=== PATIENT | male | born 1950 | race Caucasian/White ===

== ENCOUNTER → 2020-05-30 | Outpatient (CLI) | payer MEDICARE ==
--- NOTE | 2020-05-30 13:04 | Diagnostic Imaging Report ---
PROCEDURE: US Renal Bilateral. INDICATION: Chronic renal disease TECHNIQUE: Multiple real-time grayscale sonographic images were obtained of the kidneys. CORRELATION: None FINDINGS: RIGHT KIDNEY: 12.3 x 4.4 x 6.6 cm. There is normal echotexture of the right renal parenchyma. No definitive calcification or hydronephrosis. LEFT KIDNEY: 12.9 x 5.1 x 8.3 cm. There is normal echotexture of the left renal parenchyma. No definitive calcification or hydronephrosis. URINARY BLADDER: The partially distended bladder has an unremarkable appearance. Bilateral ureteral jets are present. IMPRESSION: 1. Unremarkable renal sonogram. Dictated by: Dictated on workstation # [id number]
== END ==
LOC: RAD 11:00
PROVIDERS: ATTEND Internal Medicine
DX: N18.9 Chronic kidney disease, unspecified (principal)
CPT/HCPCS: 76770

== ENCOUNTER → 2021-12-31 | Outpatient (CLI) | payer MEDICARE ==
[~2021-12-31] VITALS: Ht 175.3 cm; Wt 102.0 kg
[~2021-12-31] MED LIST: ASPI-808 PO; CEPH500T PO; INSU100V42 SQ; LOSA50TA63 PO; LOVA40TA2 PO; OXYC1TAB11 PO; QUET100T PO; TMSL.4C PO
== END | disposition home or self-care (01) ==
LOC: PREOP 05:30
PROVIDERS: ATTEND Urology
DX: Z01.818 Encounter for other preprocedural examination (principal)

== ENCOUNTER 2022-01-06 07:58 | Day surgery (SDC) | payer MEDICARE ==
[2022-01-06] VITALS (11 sets, daily range): BP systolic 142–175; BP diastolic 57–90
[~2022-01-06] VITALS: Ht 175 cm; Wt 102.0 kg
--- NOTE | 2022-01-06 07:17 | Progress Note-Pre Operative ---
Pre-Operative Progress Note H&P Reviewed The H&P was reviewed, patient examined and no changes noted. Date Seen by Provider: January 06, 2022 Time Seen by Provider: 09:57 Date H&P Reviewed: January 06, 2022 Time H&P Reviewed: 09:57 Pre-Operative Diagnosis: PHIMOSIS WITH GLANS LESIONS LUCY GORMAN MD January 06, 2022 07:17
[~2022-01-06 07:58] MED LIST changes: -ASPI-808 PO; -CEPH500T PO; -OXYC1TAB11 PO
[2022-01-06] MEDS: LACTATED RINGERS 1,000 ML IV PRN ×2 (09:00→11:27)
[2022-01-06] MEDS ORDERED: NEOSPORIN + PAIN RELIEF CREAM 15 GM ONE (09:07)
--- NOTE | 2022-01-06 09:58 | Progress Note-Post Operative ---
Post-Operative Progess Note Surgeon (s)/Clean Up Person (s) Surgeon LUCY GORMAN MD Clean Up Person: NONE Pre-Operative Diagnosis PHIMOSIS WITH GLANS LESIONS Post-Operative Diagnosis SAME Procedure & Operative Findings Date of Procedure 01/06/22 Procedure Performed/Findings CIRCUMCISION AND BIOPSY GLANS LESIONS Anesthesia Type GENERAL Estimated Blood Loss Estimated blood loss (mL): LESS THAN 50cc Specimens/Packing Specimens Removed FORESKIN AND GLANS LESIONS Packing: NONE LUCY GORMAN MD January 06, 2022 09:58
[2022-01-06] MEDS ORDERED: ONDANSETRON 4 MG/2 ML (SDV) Z0FRAN ONE (10:02)
[2022-01-06] MEDS ORDERED: LIDOCAINE PF 2% 5 ML (XYLOCAINE) VIAL ONE (10:02)
[2022-01-06] MEDS ORDERED: fentaNYL INJ 100 MCG/2 ML AMP ONE (10:02)
[2022-01-06] MEDS ORDERED: proPOfol 200 MG/20 ML (DIPRIVAN) VIAL IV ONE (10:02)
[2022-01-06] MEDS ORDERED: ASPI-808 PO (10:51)
[2022-01-06] MEDS ORDERED: SEVOFLURANE (ULTANE) 15 ML INHAL SOLN ONE (11:04)
[2022-01-06] MEDS ORDERED: ONDANSETRON 4 MG/2 ML (SDV) Z0FRAN IVP PRN (11:15)
[2022-01-06] MEDS ORDERED: HYDROmorphone 2 MG/ML VIAL (DILAUDID) IV ONE (11:15)
[2022-01-06] MEDS ORDERED: morphine INJ 10 MG/ML 1ML (SYR OR VIAL) IVP ONE (11:15)
--- NOTE | 2022-01-06 11:16 | Discharge Inst-Urology ---
Discharge Inst-Urology Reconcile Patient Problems Problems Reviewed?: Yes Final Diagnosis PHIMOSIS AND GLANS LESIONS Patient Instructions/Follow Up Plan/Assessment/Instructions Please make appointment to been seen in office in 2 weeks. REST till then and off ASA Ice to penis in RR and at home for 6 hours and then PRN Neosporin+pain ointment tid to circ area and glans for 5-7 days Tomorrow start showers, no bath Keep bowels soft and moving Increase oral fluids for 48 hours and then as needed. Diet and Activity as tolerated. If questions or concerns contact your physician Or seek help at emergency department. LUCY GORMAN MD January 06, 2022 11:16
[2022-01-06] MEDS ORDERED: OXYC1TAB11 PO (11:30)
[2022-01-06] MEDS ORDERED: CEPH500T PO (11:30)
--- NOTE | 2022-01-06 11:59 | Anesthesia-General Post-Op ---
General Patient Condition Mental Status/LOC: Same as Preop Cardiovascular: Satisfactory Nausea/Vomiting: Absent Respiratory: Satisfactory Pain: Controlled Complications: Absent Post Op Complications Complications None Follow Up Care/Instructions Patient Instructions None needed. Anesthesia/Patient Condition Patient Condition Patient is doing well in PACU, no complaints, stable vital signs, no apparent adverse anesthesia problems. OFE HUGHES DO January 06, 2022 11:59
--- NOTE | 2022-01-06 14:52 | OPERATIVE REPORT ---
DATE OF SERVICE: 01/06/2022 PREOPERATIVE DIAGNOSES: 1. Phimosis. 2. Glans lesions. POSTOPERATIVE DIAGNOSES: 1. Phimosis. 2. Glans lesions. OPERATION PERFORMED: Circumcision and excisional biopsy of glans lesion as well as a penile mucosa. SURGEON: Dawood Gorman MD. ANESTHESIA: General. COMPLICATIONS: None. DESCRIPTION OF PROCEDURE: Under satisfactory general anesthesia, the patient in supine position, abdomen, genitalia and thigh were prepped and draped in the usual sterile fashion. A circular incision was made in the foreskin at the level of the ahuja glandis and then a dorsal slit was performed to be able to retract the foreskin. A circular incision was made in the mucosa proximal to the ahuja glandis. The excess foreskin was sharply excised. Bleeders were cauterized as the resection was proceeding. Hemostasis was complete. I went ahead and obtained excisional biopsies of the mucosa of the penis ventrally to make sure about cancer and also took two biopsies from the lesions and the glans penis, cauterized the base with complete hemostasis. I went ahead and closed, approximated the skin and the mucosa with interrupted 4-0 chromic catgut in the four-quadrant and in between. Neosporin plus pain ointment was applied. Needle, sponge, and instruments were correct x2. Estimated blood loss, less than 50 mL, none of which was replaced. The patient tolerated the procedure and anesthesia well and was sent to recovery room in stable condition. Job ID: [id number] DocumentID: [id number] Dictated Date: 01/06/2022 11:20:32 Sash Sticker Date: 01/06/2022 14:51:37 Dictated By: DAWOOD GORMAN MD
== END 2022-01-06 13:05 | disposition home or self-care (01) ==
LOC: SDC 07:58
PROVIDERS: ATTEND Urology
DX: C60.1 Malignant neoplasm of glans penis (principal); N47.1 Phimosis
CPT/HCPCS: 87081

== ENCOUNTER 2023-01-06 05:41 | Outpatient (CLI) | payer MEDICARE ==
[~2023-01-06] VITALS: Ht 175.3 cm; Wt 103.0 kg
[~2023-01-06 05:41] MED LIST changes: +ASPI-808 PO; +CEPH500T PO; +OXYC1TAB11 PO
[2023-01-06] MEDS ORDERED: INSU100V37 SQ (13:32)
[2023-01-06] MEDS ORDERED: OMEP20TA33 PO (13:32)
[2023-01-06] MEDS ORDERED: INSU100V16 SQ (13:32)
== END 2023-01-06 13:47 | disposition home or self-care (01) ==
LOC: PREOP 05:41
PROVIDERS: ATTEND Surgery
DX: Z01.818 Encounter for other preprocedural examination (principal)

== ENCOUNTER 2023-01-07 09:52 | Day surgery (SDC) | payer MEDICARE ==
[2023-01-07] VITALS (7 sets, daily range): BP systolic 124–173; BP diastolic 57–85
[~2023-01-07] VITALS: Ht 175.3 cm; Wt 103.0 kg
[~2023-01-07 09:52] MED LIST changes: +INSU100V16 SQ; +INSU100V37 SQ; +OMEP20TA33 PO
[2023-01-07] MEDS ORDERED: LACTATED RINGERS 1,000 ML IV PRN (10:00)
[2023-01-07] MEDS ORDERED: CLINDAMYCIN 600 MG/50 ML IVPB 50 ML IV ONE (10:00)
[2023-01-07] MEDS ORDERED: BUP/EPI 0.5% 1:200,000 (SENSORCAINE) 30 ML VIAL ONE (10:47)
[2023-01-07] MEDS ORDERED: 0.9% SODIUM CHLORIDE PF INJ 20 ML VIAL ONE (10:47)
[2023-01-07] MEDS ORDERED: HEParin (CENTRAL IV FLUSH) 500 UNIT/5 ML SYR ONE (10:47)
[2023-01-07] MEDS ORDERED: MIDAZOLAM 2 MG/2 ML (VERSED) VIAL ONE (11:10)
[2023-01-07] MEDS ORDERED: PROPOFOL INJECTION 50 ML IV ONE (11:10)
--- NOTE | 2023-01-07 11:10 | Progress Note-Pre Operative ---
Pre-Operative Progress Note Date H&P Reviewed: January 07, 2023 Time H&P Reviewed: 11:10 History & Physical: H&P Reviewed, Patient Examed, No changes noted Pre-Operative Diagnosis: lung cancer CARINA OLIVER DO January 07, 2023 11:10
[2023-01-07] MEDS ORDERED: BUP/EPI 0.5% 1:200,000 (SENSORCAINE) 30 ML VIAL INJ ONE (11:34)
[2023-01-07] MEDS ORDERED: HEParin (CENTRAL IV FLUSH) 500 UNIT/5 ML SYR IV ONE (11:35)
[2023-01-07] MEDS ORDERED: 0.9% SODIUM CHLORIDE PF INJ 20 ML VIAL IV ONE (11:36)
--- NOTE | 2023-01-07 11:50 | Discharge Inst-Simple/Standard ---
Discharge Inst-Standard Patient Instructions/Follow Up Plan of Care/Instructions/FU: 2 weeks charles Activity as Tolerated: No Discharge Diet: Regular Diet Other Inst to Patient Follow up Appt: Make appointment for 2 week. Instructions: No lifting greater than 10 pounds. No strenuous activity. May shower in 24 hours, no tub bath or soaking. Use incentive spirometer at home as directed. No Smoking Skin/Wound Care: You have special glue over your incision that will fall off on it's own. Ice pack on 15 min and off 30 min for first 48 hours. This reduces discomfort and swelling. Symptoms to Report: Appetite Changes, Extremity Discoloration, Numbness/Tingling, Swelling Increased, Bleeding Excessive, Eyesight Changes, Pain Increased, Urine Color Change, Constipation(Persistent), Fever over 101 degree F, Pain/Pressure in ches t, Urinating Difficulty, Cough Up/Vomit Blood, Heart Beat Irreg/Pounding, Pain/Pressure in jaw, Vaginal Bleeding Increase, Cramps in feet or legs, Lightheadedness, Pain/Pressure in shoulder, Diarrhea(Persistent), Memory Changes Suddenly, Questions/Concerns, Weight gain consecutive days, Dizziness/Fainting, Nausea/Vomiting, Shortness of Breath, Weight gain over 2 pounds If questions or concerns contact your physician Or seek help at emergency department. CARINA OLIVER DO January 07, 2023 11:50
--- NOTE | 2023-01-07 11:51 | Progress Note-Post Operative ---
Post-Operative Progess Note Surgeon (s)/Field Service Technician (s) Surgeon CARINA OLIVER DO Field Service Technician: na Pre-Operative Diagnosis lung cancer Post-Operative Diagnosis same Procedure & Operative Findings Date of Procedure 01/07/23 Procedure Performed/Findings PROCEDURE: Left internal jugular port placement using ultrasound guidance. COMPLICATIONS: None. INDICATIONS: The patient is a 72 year old male with lung cancer. Patient understands the risks and benefits of port placement and wished to proceed with the procedure. Consent was signed on the chart. PROCEDURE: The patient was taken to the operating suite, was prepped and draped in the sterile fashion. A surgical pause was performed. Ultrasound was used to locate the internal jugular vein. Once located anesthetic was infiltrated above it. Using micro-access kit, the right internal vein was accessed. Dark nonpulsatile blood was withdrawn. The wire was inserted. Fluoroscopy assured proper placement. The needle was removed. The micro-access dilator was advanced over the wire and the wire was removed. The regular wire was inserted and fluoroscopy assured proper placement. The wire was then secured. Local anesthetic was used to anesthetize from the neck for tunneling down to the right chest and for pocket creation. A 15 blade scalpel was used to make an incision over the left chest. Cautery was used to dissect down to the pectoral fascia. A pocket was created with blunt dissection. The dilator sheath was then advanced over the wire under fluoroscopy and the dilator and wire were removed. The Groshong catheter was inserted through the sheath and the sheath was then removed. The Groshong wire was removed. The catheter was then tunneled to the right chest pocket. Fluoroscopy was used to cut to length and this was then attached to the port which was then placed within the pocket. The port was then accessed without difficulty. It was then flushed with saline and then heparin. The subcutaneous tissues were then reapproximated using 3-0 Vicryl. The areas were then washed and dried. Skin Affix was placed over incision. The insertion point of the neck Skin Affix was placed over the incision. The patient tolerated the procedure well without complication and was taken to recovery room in stable condition. Chest x-ray is pending. Anesthesia Type mac c local Estimated Blood Loss Estimated blood loss (mL): minimal Specimens/Packing Specimens Removed CARINA Huntley DO January 07, 2023 11:51
[2023-01-07] MEDS ORDERED: morphine INJ 10 MG/ML 1ML (SYR OR VIAL) IVP ONE (12:00)
[2023-01-07] MEDS ORDERED: ONDANSETRON 4 MG/2 ML (SDV) Z0FRAN IVP PRN (12:00)
[2023-01-07] MEDS ORDERED: MEPERIDINE (DEMEROL) INJ 50 MG/ML IVP ONE (12:00)
--- NOTE | 2023-01-07 12:00 | Anesthesia-General Post-Op ---
MAC Patient Condition Mental Status/LOC: Same as Preop Cardiovascular: Satisfactory Nausea/Vomiting: Absent Respiratory: Satisfactory Pain: Controlled Complications: Absent Post Op Complications Complications None Follow Up Care/Instructions Patient Instructions None needed. Anesthesiology Discharge Order Discharge Order Patient is doing well, no complaints, stable vital signs, no apparent adverse anesthesia problems. No complications reported per nursing. PRINCESS SILVA CRNA January 07, 2023 12:00
--- NOTE | 2023-01-07 12:10 | Diagnostic Imaging Report ---
Indication: Port placement. Findings: A left IJ catheter with chest wall port has its tip at the mid SVC level, placed with no pneumothorax. Abnormal right perihilar pulmonary densities are present, if not already worked up, formal chest CT recommended. No effusion. No findings suggestive of pneumonia or acute failure. Impression: 1. Central line placed in good position without pneumothorax. 2. Abnormal perihilar nodularity if not already worked up formally at an outside facility, dedicated chest CT if this finding would be recommended. Dictated by: Dictated on workstation # [id number]
--- NOTE | 2023-01-07 18:18 | Diagnostic Imaging Report ---
INDICATION: Port placement. COMPARISON: 01/07/2023. TECHNIQUE: Two intraoperative images of the upper chest are submitted dated 01/07/2023. FINDINGS: Intraoperative imaging demonstrates placement of a Port-A-Cath with the hub overlying the left upper chest with the catheter extending to overlie the superior vena cava. IMPRESSION: Intraoperative imaging from placement of a left-sided Port-A-Cath as described above. See surgical note for full details. Fluoroscopy time: 16.1 seconds, two images saved and reviewed, cumulative dose: 3.43 mGy. Dictated by: Dictated on workstation # [id number]
== END 2023-01-07 12:55 | disposition home or self-care (01) ==
LOC: SDC 09:52
PROVIDERS: ATTEND Surgery
DX: C34.90 Malignant neoplasm of unspecified part of unspecified bronchus or lung (principal); I87.2 Venous insufficiency (chronic) (peripheral); E66.9 Obesity, unspecified; Z68.33 Body mass index [BMI] 33.0-33.9, adult; Z87.891 Personal history of nicotine dependence; Z85.828 Personal history of other malignant neoplasm of skin
CPT/HCPCS: 36561; 71045; 76000; 87081; C1788

== ENCOUNTER → 2023-02-02 | Outpatient (RCR) | payer MEDICARE, OTHER | END | disposition home or self-care (01) | LOC: ONC 01-06 08:12 | PROVIDERS: ATTEND Radiology Radiation Oncology | DX: Z51.0 Encounter for antineoplastic radiation therapy (principal); C34.90 Malignant neoplasm of unspecified part of unspecified bronchus or lung; I73.9 Peripheral vascular disease, unspecified | CPT/HCPCS: 77290; 77295; 77300; 77334; 77336; 77417; 77470; 99205 ==

== ENCOUNTER → 2023-03-02 | Outpatient (CLI) | payer MEDICARE | LOC: CARD 11:58 | PROVIDERS: ATTEND Internal Medicine Cardiovascular Disease | DX: I10 Essential (primary) hypertension (principal); I25.10 Atherosclerotic heart disease of native coronary artery without angina pectoris | CPT/HCPCS: 93306 ==

== ENCOUNTER 2023-03-03 13:00 | Outpatient (RCR) | payer MEDICARE, OTHER | END 2023-03-04 | LOC: ONC 13:00 | PROVIDERS: ATTEND Radiology Radiation Oncology | DX: Z51.0 Encounter for antineoplastic radiation therapy (principal); Z45.2 Encounter for adjustment and management of vascular access device; C34.90 Malignant neoplasm of unspecified part of unspecified bronchus or lung; I73.9 Peripheral vascular disease, unspecified; I10 Essential (primary) hypertension; I65.29 Occlusion and stenosis of unspecified carotid artery; E78.2 Mixed hyperlipidemia | CPT/HCPCS: 77280; 77307; 77334; 77336; 77417 ==

== ENCOUNTER 2023-04-02 10:39 | Emergency (ER) | payer MEDICARE ==
[~2023-04-02] VITALS: Ht 175.3 cm; Wt 92.1 kg
--- NOTE | 2023-04-02 11:06 | ED Respiratory ---
General Chief Complaint: Cough/Cold/Flu Symptoms Stated Complaint: SOA Nursing Triage Note: PT AMBULATE TO ROOM 06 WITHOUT DIFFICULTY WITH C/O COUGH STARTING TUESDAY. PT REPORTS HX OF LUNG CANCER. PT REPORTS LAS CHEMO ON 02/11/23 AND LAST RADIAION ON 03/03/23. Source: patient, family Exam Limitations: no limitations History of Present Illness Date Seen by Provider: Apr 02, 2023 Time Seen by Provider: 10:45 Initial Comments 72-year-old male with lung cancer currently undergoing radiation, with last chemotherapy on of last radiation on 02/2923 presents from the [facility] clinic for shortness of breath. He was tested for influenza and COVID prior to arrival which were reportedly negative. symptoms worsened over the last couple of days. He has an increasing nonproductive cough. No fevers or chills. No sick cont acts. No chest pain All other systems reviewed and negative except documented per HPI. Voice recognition software was used to help create this chart Allergies and Home Medications Allergies Coded Allergies: Penicillins (Unverified Allergy, Unknown, CHILD, 01/06/23) bupropion (Verified Allergy, Unknown, 01/06/23) Patient Home Medication List Home Medication List Reviewed: Yes Insulin Aspart (Novolog) 100 Unit/Ml Susp, 0 SQ AC, (Reported) Entered as Reported by: ELLA VILLEGAS on 01/06/231331 Insulin Degludec (Tresiba) 100 Unit/Ml Vial, 34 UNIT SQ DAILY, (Reported) Entered as Reported by: ELLA VILLEGAS on 01/06/231331 Losartan Potassium (Losartan Potassium) 50 Mg Tablet, 50 MG PO DAILY, (Reported) Entered as Reported by: HUBERT DUNHAM on 12/31/21 1340 Lovastatin (Lovastatin) 40 Mg Tablet, 40 MG PO HS, (Reported) Entered as Reported by: HUBERT DUNHAM on 12/31/21 134 Omeprazole Magnesium (Prilosec Otc) 20 Mg Tablet.dr, 20 MG PO DAILY, (Reported) Entered as Reported by: ELLA VILLEGAS on 01/06/231331 Quetiapine Fumarate (Seroquel) 100 Mg Tablet, 100 MG PO DAILY, (Reported) Entered as Reported by: HUBERT DUNHAM on 12/31/21 134 Tamsulosin HCl (Flomax) 0.4 Mg Cap, 0.4 MG PO DAILY, (Reported) Entered as Reported by: HUBERT DUNHAM on 12/31/21 2750 Review of Systems Review of Systems Constitutional: see HPI Past Kglwhfo-Vahszl-Yiuxnz Hx Patient Social History Tobacco Use?: No Smoking Status: Former Smoker Smokeless Tobacco Frequency: Never a User Use of E-Cig and/or Vaping dev: No Use of E-Cig and/or Vaping Celestino: Never a User Substance use?: Yes Substance type: Marijuana Substance frequency: Daily Alcohol Use?: No Pt feels they are or have been: No Immunizations Up To Date First/Initial COVID19 Vaccinat: 2020 M Second COVID19 Vaccination Haroldo: 2020 Third COVID19 Vaccination Date: 2021 P Seasonal Allergies Seasonal Allergies: No Past Medical History Surgeries: Yes (SKIN CANCER EAR, CIRCUMSION) Respiratory: No Currently Using CPAP: No Currently Using BIPAP: No Cardiac: Yes High Cholesterol, Hypertension Neurological: Yes (R/T BLOOD SUGAR) Seizure Disorder Genitourinary: Yes (FORESKIN ISSUE) Benign Prostatic Hyperpl Gastrointestinal: Yes Gastroesophageal Reflux Musculoskeletal: Yes Chronic Back Pain Endocrine: Yes Diabetes, Non-Insulin dep HEENT: Yes (GLASSES AND DENTURES) Cancer: Yes Lung, Skin Psychosocial: No Integumentary: Yes (SKIN CA REMOVED) Blood Disorders: No Physical Exam Vital Signs - First Documented 04/02/23 10:45 Temp 36.0 Pulse 107 Resp 15 B/P (MAP) 117/71 (86) O2 Delivery Room Air Capillary Refill : Less Than 3 Seconds Height: '" Weight: lbs. oz. kg; 29.00 BMI Method: General Appearance: WD/WN, no apparent distress HEENT: normal ENT inspection, pharynx normal Neck: non-tender, supple Respiratory: chest non-tender, lungs clear, normal breath sounds, no respiratory distress, no accessory muscle use Cardiovascular: no murmur, tachycardia (Mild tachycardia) Gastrointestinal: normal bowel sounds, non tender, soft Skin: normal color, warm/dry Progress/Results/Core Measures Suspected Sepsis SIRS Temperature: Pulse: 107 Respiratory Rate: 15 Laboratory Tests 04/02/23 11:11: White Blood Count 6.0 Blood Pressure 117 /71 Mean: 86 Laboratory Tests 04/02/23 11:11: Creatinine 1.91H, Platelet Count 177 Results/Orders Lab Results Laboratory Tests Test 04/02/23 11:11 Range/Units White Blood Count 6.0 4.3-11.0 10^3/uL Red Blood Count 3.78 L 4.30-5.52 10^6/uL Hemoglobin 12.1 L 13.3-17.7 g/dL Hematocrit 35 L 40-54 % Mean Corpuscular Volume 93 80-99 fL Mean Corpuscular Hemoglobin 32 25-34 pg Mean Corpuscular Hemoglobin Concent 34 32-36 g/dL Red Cell Distribution Width 15.2 H 10.0-14.5 % Platelet Count 177 130-400 10^3/uL Mean Platelet Volume 11.0 9.0-12.2 fL Immature Granulocyte % (Auto) 1 % Neutrophils (%) (Auto) 71 42-75 % Lymphocytes (%) (Auto) 11 L 12-44 % Monocytes (%) (Auto) 11 0-12 % Eosinophils (%) (Auto) 5 0-10 % Basophils (%) (Auto) 1 0-10 % Neutrophils # (Auto) 4.2 1.8-7.8 10^3/uL Lymphocytes # (Auto) 0.7 L 1.0-4.0 10^3/uL Monocytes # (Auto) 0.7 0.0-1.0 10^3/uL Eosinophils # (Auto) 0.3 0.0-0.3 10^3/uL Basophils # (Auto) 0.1 0.0-0.1 10^3/uL Immature Granulocyte # (Auto) 0.0 0.0-0.1 10^3/uL Sodium Level 138 135-145 MMOL/L Potassium Level 3.7 3.6-5.0 MMOL/L Chloride Level 102 98-107 MMOL/L Carbon Dioxide Level 24 21-32 MMOL/L Anion Gap 12 5-14 MMOL/L Blood Urea Nitrogen 18 7-18 MG/DL Creatinine 1.91 H 0.60-1.30 MG/DL Estimat Glomerular Filtration Rate 37 BUN/Creatinine Ratio 9 Glucose Level 74 70-105 MG/DL Calcium Level 10.2 H 8.5-10.1 MG/DL My Orders Orders - HERI WILSON DO Chest Pa/Lat (2 View) (04/02/23 10:51) Cbc With Automated Diff (7/29/23 10:51) Basic Metabolic Panel (04/02/23 10:51) General/Regular (04/02/23 Lunch) Vital Signs/I&O 04/02/23 04/02/23 10:45 10:45 Temp 36.0 Pulse 107 Resp 15 B/P (MAP) 117/71 (86) O2 Delivery Room Air Room Air Capillary Refill : Less Than 3 Seconds Blood Pressure Mean: 86 Departure Communication (Admissions) The patient is hemodynamically stable. Given his cancer diagnosis and immunocompromise state, propensity for pneumonia I will go ahead and give him some antibiotics out of caution. His labs are reassuring and vital signs are stable. He is in no respiratory distress. I have independently reviewed the chest x-ray imaging Impression Primary Impression: Bronchitis Disposition: 01 HOME, SELF-CARE Condition: Stable Departure-Patient Inst. Referrals: [facility] [place] (PCP/Family) Primary Care Physician Patient Instructions: Acute Bronchitis, Adult (DC) Add. Discharge Instructions: Take the antibiotics as prescribed until they are gone. Increase your fluids and rest. Return to the emergency department for any severe concerns. Follow- up with your primary doctor for any nonemergent needs All discharge instructions reviewed with patient and/or family. Voiced understanding. Scripts Azithromycin (Azithromycin) 500 Mg Tablet 500 MG PO DAILY for 5 Days, #5 TAB Prov: HERI WILSON DO 04/02/23 HERI WILSON DO Apr 02, 2023 11:06
[2023-04-02 11:22] LABS: BASOPHILS # (AUTO) 0.1 10^3/uL (0.0-0.1); BASOPHILS % (AUTO) 1 % (0-10); EOSINOPHILS # (AUTO) 0.3 10^3/uL (0.0-0.3); EOSINOPHILS % (AUTO) 5 % (0-10); HEMATOCRIT 35 % (40-54); HEMOGLOBIN 12.1 g/dL (13.3-17.7); LYMPHOCYTES # (AUTO) 0.7 10^3/uL (1.0-4.0); LYMPHOCYTES % (AUTO) 11 % (12-44); MEAN CORPUSCULAR HEMOGLOBIN 32 pg (25-34); MEAN CORPUSCULAR HGB CONC 34 g/dL (32-36); MEAN CORPUSCULAR VOLUME 93 fL (80-99); MONOCYTES # (AUTO) 0.7 10^3/uL (0.0-1.0); MONOCYTES % (AUTO) 11 % (0-12); NEUTROPHILS # (AUTO) 4.2 10^3/uL (1.8-7.8); NEUTROPHILS % (AUTO) 71 % (42-75); PLATELET COUNT 177 10^3/uL (130-400)
[2023-04-02 11:29] LABS: POTASSIUM 3.7 MMOL/L (3.6-5.0)
[2023-04-02 11:30] LABS: CALCIUM 10.2 MG/DL (8.5-10.1)
--- NOTE | 2023-04-02 11:30 | Diagnostic Imaging Report ---
EXAMINATION: Chest 2 view HISTORY: dyspnea, cough, lung cancer COMPARISON: 01/07/2023 FINDINGS: Heart size and pulmonary vasculature are normal. The lungs are clear without consolidation, pleural effusion, or pneumothorax. Degenerative changes of the thoracic spine. Osseous structures are otherwise intact. Left-sided Port-A-Cath is present. IMPRESSION: 1. No acute radiographic abnormality in the chest. Dictated by: Dictated on workstation # [id number]
[2023-04-02 11:35] LABS: CREATININE SERUM 1.91 MG/DL (0.60-1.30)
[2023-04-02] MEDS ORDERED: AZIT500T9 PO (11:46)
[2023-04-02 11:51] VITALS: BP 137/86
== END 2023-04-02 11:51 | disposition home or self-care (01) ==
LOC: EDUNIT# 10:39 → ER 10:42
DX: J40 Bronchitis, not specified as acute or chronic (principal); C34.90 Malignant neoplasm of unspecified part of unspecified bronchus or lung; Z92.3 Personal history of irradiation; Z92.21 Personal history of antineoplastic chemotherapy; Z87.891 Personal history of nicotine dependence; Z88.0 Allergy status to penicillin
CPT/HCPCS: 36415; 71046; 80048; 85025

== ENCOUNTER 2023-04-21 08:55 | Outpatient (RCR) | payer MEDICARE, OTHER ==
[~2023-04-21 08:55] MED LIST changes: +AZIT500T9 PO
== END 2023-05-05 | disposition home or self-care (01) ==
LOC: ONC 08:55
PROVIDERS: ATTEND Radiology Radiation Oncology
DX: C34.90 Malignant neoplasm of unspecified part of unspecified bronchus or lung (principal); I73.9 Peripheral vascular disease, unspecified; I10 Essential (primary) hypertension; I65.29 Occlusion and stenosis of unspecified carotid artery; E78.2 Mixed hyperlipidemia
CPT/HCPCS: 99213

== ENCOUNTER → 2023-07-13 | Outpatient (CLI) | payer MEDICARE ==
[~2023-07-13] VITALS: Ht 175 cm; Wt 96.0 kg
[2023-07-13] VITALS (15 sets, daily range): BP systolic 150–180; BP diastolic 74–87
[~2023-07-13] MED LIST changes: +HYDROcodone/ACETAMINOPHEN 5 MG/325 MG TABLET PO PRN; +LIDOCAINE 1% INJ 10 ML VIAL INJ ONE; +MIDAZOLAM INJ 2 MG/2 ML VIAL IVP ONE; +NS IV 1000 ML 1,000 ML IV STA; +fentaNYL INJECTION 100 MCG/2 ML VIAL IVP ONE
[2023-07-13 08:31] LABS: HEMATOCRIT 34 % (40-54); HEMOGLOBIN 11.7 g/dL (13.3-17.7); MEAN CORPUSCULAR HEMOGLOBIN 30 pg (25-34); MEAN CORPUSCULAR HGB CONC 34 g/dL (32-36); MEAN CORPUSCULAR VOLUME 89 fL (80-99); MEAN PLATELET VOLUME 10.2 fL (9.0-12.2); PLATELET COUNT 190 10^3/uL (130-400); WHITE BLOOD COUNT 4.4 10^3/uL (4.3-11.0)
[2023-07-13 08:43] LABS: INR 0.9 (0.8-1.4); PROTHROMBIN TIME PATIENT 12.7 SEC (12.2-14.7)
--- NOTE | 2023-07-13 10:34 | Pre-Op Note & Conscious Sedat ---
Pre-Operative Progress Note Date of Available H&P: Jul 13, 2023 Date H&P Reviewed: Jul 13, 2023 Time H&P Reviewed: 09:00 Pre-Op Diagnosis: liver mass Moderate Sedation PreProcedure Time 09:00 ASA Score 2 Airway Lungs Heart ASA score ASA 1: a normal healthy patient ASA 2: a patient with a mild systemic disease (mid diabetes, controlled hypertension, obesity ASA 3: a patient with a severe systemic disease that limits activity (angina, COPD, prior Myocardial infarction) ASA 4: a patient with an incapacitating disease that is a constant threat to life (CHF, renal failure) ASA 5: a moribund patient not expected to survive 24 hrs. (ruptured aneurysm) ASA 6: a declared brain- patient whose organs are being harvested. For emergent operations, add the letter E after the classification Mallampati Classification Grade 2 Sedation Plan Analgesia, Amnesia, Plan communicated to team members, Discussed options with patient/fam, Discussed risks with patient/fam The patient is an appropriate candidate to undergo the planned procedure, sedation, and anesthesia. The patient immediately re-assessed prior to indication. PAM CONRAD MD Jul 13, 2023 10:34
--- NOTE | 2023-07-13 11:30 | Diagnostic Imaging Report ---
INDICATION: Liver mass. Patient presents for CT-guided liver biopsy. FINDINGS: Patient was brought to the CT suite, placed on table in the supine position. Axial imaging through the abdomen was performed to evaluate appropriate entry site. Right abdomen was then prepped and draped in the usual sterile fashion. The procedure was performed utilizing conscious sedation with radiology nursing and constant patient monitoring. Patient was given a total of 50 mcg of fentanyl intravenously. Total procedure time is approximately 9 minutes. 18-gauge coaxial Temno needle was advanced from a right lateral approach and placed with its tip along the margin of the low-attenuation mass in the right lobe of the liver medially. Four core biopsies were then obtained. A blood patch was injected during needle removal. Hemostasis was obtained using manual compression. Patient tolerated the procedure well and left the department in stable condition. IMPRESSION: CT-guided right lobe liver mass biopsy, utilizing conscious sedation. Pathology results are currently pending. Dictated by: Dictated on workstation # [id number]
== END ==
LOC: SDC 07:48
PROVIDERS: ATTEND Internal Medicine Hematology & Oncology
DX: C78.7 Secondary malignant neoplasm of liver and intrahepatic bile duct (principal); C80.1 Malignant (primary) neoplasm, unspecified; Z87.891 Personal history of nicotine dependence; Z85.828 Personal history of other malignant neoplasm of skin
CPT/HCPCS: 36415; 77012; 82947; 85027; 85610; 85730; 88307; 88342; 88344

== ENCOUNTER → 2023-08-04 | Outpatient (RCR) | payer MEDICARE, OTHER ==
[~2023-08-04] MED LIST changes: -HYDROcodone/ACETAMINOPHEN 5 MG/325 MG TABLET PO PRN; -LIDOCAINE 1% INJ 10 ML VIAL INJ ONE; -MIDAZOLAM INJ 2 MG/2 ML VIAL IVP ONE; -NS IV 1000 ML 1,000 ML IV STA; -fentaNYL INJECTION 100 MCG/2 ML VIAL IVP ONE
== END | disposition home or self-care (01) ==
LOC: ONC 07-15 12:58
PROVIDERS: ATTEND Radiology Radiation Oncology
DX: Z51.0 Encounter for antineoplastic radiation therapy (principal); C34.90 Malignant neoplasm of unspecified part of unspecified bronchus or lung; I10 Essential (primary) hypertension; I65.29 Occlusion and stenosis of unspecified carotid artery; E78.2 Mixed hyperlipidemia
CPT/HCPCS: 77290; 77295; 77300; 77334; 77336; 77417; 77470